=== PATIENT | female | born 1955 | race Caucasian/White ===

== ENCOUNTER 2018-02-21 09:17 | Outpatient (CLI) | payer OTHER | END 2018-02-21 09:29 | disposition home or self-care (01) | LOC: MAMO-SONO 09:17 | DX: Z12.31 Encounter for screening mammogram for malignant neoplasm of breast (principal); D24.1 Benign neoplasm of right breast ==

== ENCOUNTER 2019-03-02 09:15 | Outpatient (CLI) | payer OTHER | END 2019-03-02 13:01 | disposition home or self-care (01) | LOC: MAMO-SONO 09:15 | DX: Z12.31 Encounter for screening mammogram for malignant neoplasm of breast (principal); Z80.3 Family history of malignant neoplasm of breast ==

== ENCOUNTER → 2020-03-04 08:14 | Outpatient (CLI) | payer OTHER | END | disposition home or self-care (01) | LOC: MAMO-SONO 08:14 | PROVIDERS: ATTEND Specialist | DX: Z12.31 Encounter for screening mammogram for malignant neoplasm of breast (principal); N60.19 Diffuse cystic mastopathy of unspecified breast ==

== ENCOUNTER 2020-09-14 12:30 | Outpatient (CLI) | payer OTHER | END 2020-09-14 12:31 | disposition home or self-care (01) | LOC: MAMO-SONO 12:30 | PROVIDERS: ATTEND Specialist | DX: R59.0 Localized enlarged lymph nodes (principal) ==

== ENCOUNTER 2020-11-23 13:29 | Outpatient (CLI) | payer OTHER | END 2020-11-23 13:31 | disposition home or self-care (01) | LOC: SONOGRAMA 13:29 → MAMO-SONO 13:45 | PROVIDERS: ATTEND Specialist | DX: R59.0 Localized enlarged lymph nodes (principal) ==

== ENCOUNTER 2020-12-01 07:33 | Outpatient (CLI) | payer OTHER | END 2020-12-01 07:36 | disposition home or self-care (01) | LOC: SONOGRAMA 07:33 | PROVIDERS: ATTEND Pathology Anatomic Pathology & Clinical Pathology | DX: N63.32 Unspecified lump in axillary tail of the left breast (principal) ==

== ENCOUNTER → 2021-03-06 10:19 | Outpatient (CLI) | payer OTHER | END | disposition home or self-care (01) | LOC: MAMO-SONO 10:15 | PROVIDERS: ATTEND Specialist | DX: N60.12 Diffuse cystic mastopathy of left breast (principal); N60.11 Diffuse cystic mastopathy of right breast ==

== ENCOUNTER 2022-02-28 07:35 | Outpatient (CLI) | payer OTHER | END 2022-02-28 07:54 | disposition home or self-care (01) | LOC: MAMO-SONO 07:35 | PROVIDERS: ATTEND Specialist | DX: R59.0 Localized enlarged lymph nodes (principal); E04.9 Nontoxic goiter, unspecified ==

== ENCOUNTER 2023-03-05 08:29 | Outpatient (CLI) | payer OTHER | END 2023-03-05 08:36 | disposition home or self-care (01) | LOC: MAMO-SONO 08:29 | PROVIDERS: ATTEND Specialist | DX: Z12.31 Encounter for screening mammogram for malignant neoplasm of breast (principal); N60.12 Diffuse cystic mastopathy of left breast ==

== ENCOUNTER 2024-03-09 08:11 | Outpatient (CLI) | payer OTHER | END 2024-03-09 08:20 | disposition home or self-care (01) | LOC: MAMO-SONO 08:11 | PROVIDERS: ATTEND Specialist | DX: N60.12 Diffuse cystic mastopathy of left breast (principal); Z12.31 Encounter for screening mammogram for malignant neoplasm of breast ==

== ENCOUNTER 2025-03-17 08:28 | Outpatient (CLI) | payer OTHER | END 2025-03-17 08:36 | disposition home or self-care (01) | LOC: MAMO-SONO 08:28 | PROVIDERS: ATTEND Specialist | DX: D24.1 Benign neoplasm of right breast (principal); N60.12 Diffuse cystic mastopathy of left breast; Z12.31 Encounter for screening mammogram for malignant neoplasm of breast ==